=== PATIENT | female | born 1945 | race African-American/Black ===

== ENCOUNTER 2018-04-07 23:58 | Inpatient (IN) | payer MEDICARE, OTHER ==
[~2018-04-07] VITALS: Ht 170.2 cm; Wt 59.0 kg
[~2018-04-07 23:58] MED LIST: ALBU6.7H INH; IPRA4AER INH
[2018-04-08] VITALS (8 sets, daily range): BP systolic 101–124; BP diastolic 62–77
[2018-04-08] MEDS ORDERED: IPRATROPIUM BROMIDE (0.02%) 0.5MG/2.5ML NEB HHN STA (00:07)
[2018-04-08] MEDS ORDERED: ONDANSETRON HCL 4MG/2ML VIAL IV STA (00:07)
[2018-04-08] MEDS ORDERED: METHYLPREDNISOLONE SOD SUCC 125 MG/2 ML VIAL IV STA (00:07)
[2018-04-08] MEDS ORDERED: MAGNESIUM 2 G PREMIX 50 ML IV ONE ×2 (00:15→03:15)
[2018-04-08] MEDS ORDERED: ALBUTEROL (0.083%) 2.5MG/3ML NEB HHN SCH (00:30)
[2018-04-08 00:39] LABS: BG BASE EXCESS 1.3 mmol/L (-2.0-2.0); BG BILEVEL POS AIRWAY PRESSURE 15/5; BG CARBOXYHEMOGLOBIN 0.6 % (0.5-1.5); BG DEOXYHEMOGLOBIN 1.1 % (0.0-5.0); BG FRACTION INSPIRED OXYGEN 40; BG HCO3 ACT 26.3 mmol/L (22.0-26.0); BG METHEMOGLOBIN 0.4 % (0.0-1.5); BG OXYGEN SATURATION 98.9 % (92.0-98.5); BG OXYHEMOGLOBIN 97.9 % (94.0-97.0); BG PCO2 43.1 mmHg (35.0-45.0); BG PH 7.403 (7.350-7.450); BG PO2 161.2 mmHg (75.0-100.0); BG SAMPLE SITE RIGHT RADIAL; BG TOTAL HEMOGLOBIN 12.2 g/dL (12.0-18.0); BG VENT MODE MASK - BIPAP; BG VENT RATE 16 set
[2018-04-08 00:55] LABS: BASOPHILS % 0.4 % (0.0-2.0); EOSINOPHILS % 5.6 % (0.0-5.0); HEMATOCRIT. 35.6 % (36.0-48.0); HEMOGLOBIN. 11.5 g/dL (12.0-16.0); LYMPHOCYTES % 28.5 % (20.0-50.0); MEAN CORPUSCULAR HEMOGLOBIN 26.6 pg (28.0-32.0); MEAN CORPUSCULAR VOLUME 82.1 fL (81.0-99.0); MEAN PLATELET VOLUME 6.8 fl (7.4-10.4); MONOCYTES % 7.9 % (2.0-8.0); NEUTROPHILS % 57.6 % (40.0-76.0); PLATELET 279 x1000/uL (130-400); RED BLOOD CELL COUNT 4.34 mill/uL (4.2-5.4); RED CELL DISTRIBUTION WIDTH 16.6 % (11.6-14.6)
[2018-04-08] MEDS ORDERED: SODIUM CHLORIDE 0.9% 1,000 ML IV ONE (00:59)
[2018-04-08 01:00] LABS: CHLORIDE 104 mEq/L (98-107)
[2018-04-08 01:03] LABS: PROTHROMBIN TIME 10.7 sec (9.4-11.6)
[2018-04-08] MEDS ORDERED: SODIUM CHLORIDE 0.9% 1,000 ML IV SCH (02:04)
[2018-04-08] MEDS ORDERED: IPRATROPIUM/ALBUTEROL 0.5-3(2.5)MG/3ML NEB INH PRN (03:15)
[2018-04-08] MEDS ORDERED: CLONIDINE 0.1MG TABLET PO PRN (03:15)
[2018-04-08] MEDS ORDERED: DIPHENHYDRAMINE 50MG/ML VIAL IV PRN (03:15)
[2018-04-08] MEDS ORDERED: ACETAMINOPHEN 325MG TABLET PO PRN (03:15)
[2018-04-08] MEDS ORDERED: LEVOFLOXACIN 500MG PREMIX 100 ML IV SCH ×2 (03:15→08:00)
[2018-04-08] MEDS ORDERED: ONDANSETRON 4MG ODT PO PRN (03:15)
[2018-04-08] MEDS ORDERED: MAGNESIUM/ALUMINUM HYDROXIDE/SIMETHICONE 30ML UDC PO PRN (03:15)
[2018-04-08] MEDS ORDERED: LEVOFLOXACIN 500MG PREMIX 100 ML IV NR (03:30)
[2018-04-08] MEDS ORDERED: SODIUM CHLORIDE 0.9% INJ 3ML FLUSH IVF SCH (06:00)
[2018-04-08] MEDS ORDERED: METHYLPREDNISOLONE SOD SUCC 125 MG/2 ML VIAL IV SCH (06:00)
[2018-04-08] MEDS ORDERED: POTASSIUM CHLORIDE INJ 40 MEQ in DEXT 5% WATER 250 ML IV NR (09:00)
[2018-04-08] MEDS ORDERED: ENOXAPARIN 40MG/0.4ML SYR SUBCUT SCH (09:00)
[2018-04-08] MEDS: IPRATROPIUM/ALBUTEROL 0.5-3(2.5)MG/3ML NEB HHN SCH ×3 (09:13→15:55)
== END 2018-04-08 23:46 | disposition short-term general hospital (02) | DRG 189 ==
LOC: ER 04-08 00:07 → 5EST 04-08 02:05 → EDBEDREQSVC 04-08 02:09 → EDBEDREQ 04-08 02:09 → ENRESERV 04-08 02:41
PROVIDERS: ADMIT Internal Medicine; ATTEND Internal Medicine
PROC: 5A09357 Assistance with Respiratory Ventilation, Less than 24 Consecutive Hours, Continuous Positive Airway Pressure (ICD-10-PCS; principal; 2018-04-08)
DX: J96.00 Acute respiratory failure, unspecified whether with hypoxia or hypercapnia (principal); J44.1 Chronic obstructive pulmonary disease with (acute) exacerbation; E78.5 Hyperlipidemia, unspecified; E87.6 Hypokalemia; I10 Essential (primary) hypertension; Z87.891 Personal history of nicotine dependence; Z79.899 Other long term (current) drug therapy; Z88.8 Allergy status to other drugs, medicaments and biological substances
CPT/HCPCS: 36415; 36600; 71045; 80053; 82375; 82805; 83605; 83735; 83880; 84484; 85025; 85610; 87040; 93005; 96365; 96375; 99291; J1650; J1956; J2405; J2930; J3475; J3480; J7030; J7060; J7611; J7620

== ENCOUNTER 2018-10-22 04:14 | Inpatient (IN) | payer MEDICARE, OTHER ==
[~2018-10-22] VITALS: Ht 152.4 cm; Wt 60.8 kg
[2018-10-22] MEDS ORDERED: ALBUTEROL (0.083%) 2.5MG/3ML NEB HHN STA ×2 (04:19→08:22)
[2018-10-22] MEDS ORDERED: IPRATROPIUM BROMIDE (0.02%) 0.5MG/2.5ML NEB HHN STA ×2 (04:19→08:22)
[2018-10-22] MEDS ORDERED: ASPIRIN 81MG TABLET PO ONE (04:30)
[2018-10-22] MEDS ORDERED: METHYLPREDNISOLONE SOD SUCC 125 MG/2 ML VIAL IV ONE (05:45)
[2018-10-22] MEDS ORDERED: MAGNESIUM 2 G PREMIX 50 ML IV ONE (06:45)
[2018-10-22 06:55] LABS: BASOPHILS % 0.5 % (0.0-2.0); EOSINOPHILS % 1.1 % (0.0-5.0); HEMATOCRIT. 40.3 % (36.0-48.0); HEMOGLOBIN. 13.1 g/dL (12.0-16.0); LYMPHOCYTES % 13.8 % (20.0-50.0); MEAN CORPUSCULAR HEMOGLOBIN 26.3 pg (28.0-32.0); MEAN CORPUSCULAR VOLUME 80.8 fL (81.0-99.0); MEAN PLATELET VOLUME 7.2 fl (7.4-10.4); MONOCYTES % 4.1 % (2.0-8.0); NEUTROPHILS % 80.5 % (40.0-76.0); PLATELET 301 x1000/uL (130-400); RED BLOOD CELL COUNT 4.99 mill/uL (4.2-5.4); RED CELL DISTRIBUTION WIDTH 14.8 % (11.6-14.6)
[2018-10-22 07:02] LABS: PARTIAL THROMBOPLASTIN TIME 27.7 sec (23.4-31.0)
[2018-10-22 07:03] LABS: CHLORIDE 101 mEq/L (98-107)
[2018-10-22] MEDS ORDERED: LEVOFLOXACIN 500MG PREMIX 100 ML IV ONE (08:00)
[2018-10-22 08:33] LABS: BG BASE EXCESS 4.8 mmol/L (-2.0-2.0); BG BILEVEL POS AIRWAY PRESSURE 15/5; BG CARBOXYHEMOGLOBIN 0.1 % (0.5-1.5); BG DEOXYHEMOGLOBIN 2.1 % (0.0-5.0); BG HCO3 ACT 30.5 mmol/L (22.0-26.0); BG METHEMOGLOBIN 0.4 % (0.0-1.5); BG OXYGEN SATURATION 97.9 % (92.0-98.5); BG OXYHEMOGLOBIN 97.4 % (94.0-97.0); BG PCO2 49.4 mmHg (35.0-45.0); BG PH 7.409 (7.350-7.450); BG PO2 113.3 mmHg (75.0-100.0); BG SAMPLE SITE RIGHT BRACHIAL; BG TOTAL HEMOGLOBIN 13.7 g/dL (12.0-18.0); BG VENT MODE MASK - BIPAP; BG VENT RATE 14 set
[2018-10-22 09:42] LABS: CLARITY URINE CLEAR (CLEAR); COLOR URINE YELLOW (YELLOW); KETONES URINE TRACE (NEGATIVE); LEUKOCYTE ESTERASE URINE 3+ (NEGATIVE); NITRITE URINE NEGATIVE (NEGATIVE); OCCULT BLOOD URINE TRACE (NEGATIVE); PH URINE 7.5 (4.5-8.0); PROTEIN URINE 1+ (NEGATIVE); UROBILINOGEN URINE 0.2 E.U./dL (0.2-1.0)
[2018-10-22 12:00] VITALS: BP 169/107
[2018-10-22 12:30] VITALS: BP 169/100
[2018-10-22] MEDS: METHYLPREDNISOLONE SOD SUCC 125 MG/2 ML VIAL IV SCH ×2 (13:11→19:46)
[2018-10-22] MEDS ORDERED: IPRATROPIUM/ALBUTEROL 0.5-3(2.5)MG/3ML NEB HHN PRN (13:30)
[2018-10-22] MEDS ORDERED: SODIUM CHLORIDE 0.9% 1,000 ML IV ONE (13:45)
[2018-10-22] MEDS ORDERED: LIDOCAINE HCL/PF 1% 2ML VIAL ONE (14:22)
[2018-10-22] MEDS ORDERED: PNEUMOCOCCAL 23-VAL P-SAC VAC 0.5 ML IM ONE (17:00)
[2018-10-22] MEDS: IPRATROPIUM/ALBUTEROL 0.5-3(2.5)MG/3ML NEB HHN SCH ×3 (17:11→23:57)
[2018-10-22] MEDS ORDERED: METHYLPREDNISOLONE SOD SUCC 125 MG/2 ML VIAL IV SCH (18:00)
[2018-10-22] MEDS ORDERED: DIPHENHYDRAMINE 50MG/ML VIAL IV PRN (18:45)
[2018-10-22] MEDS ORDERED: ONDANSETRON HCL 4MG/2ML INJ IV PRN (18:45)
[2018-10-22] MEDS ORDERED: HYDRALAZINE 20MG/ML VIAL IV PRN (18:45)
[2018-10-22] MEDS ORDERED: MAGNESIUM/ALUMINUM HYDROXIDE/SIMETHICONE 30ML UDC PO PRN (18:45)
[2018-10-22] MEDS: LORAZEPAM 2MG/ML CPJ IV PRN (19:45)
[2018-10-22 20:00] VITALS: BP 107/77
[2018-10-22] MEDS ORDERED: ENOXAPARIN 40MG/0.4ML SYR SUBCUT SCH (20:00)
[2018-10-22] MEDS ORDERED: KCL 20MEQ/100ML PREMIX 100 ML IV SCH (20:00)
[2018-10-22] MEDS: FAMOTIDINE 20MG/2ML VIAL IV SCH (20:52)
[2018-10-22 22:00] VITALS: BP 129/94
[2018-10-22] MEDS: GUAIFENESIN 200MG/10ML SUGAR FREE UDC PO PRN (22:48)
[2018-10-23] VITALS (14 sets, daily range): BP systolic 99–147; BP diastolic 56–97
[2018-10-23] MEDS: METHYLPREDNISOLONE SOD SUCC 125 MG/2 ML VIAL IV SCH ×4 (00:34→17:39)
[2018-10-23] MEDS: IPRATROPIUM/ALBUTEROL 0.5-3(2.5)MG/3ML NEB HHN SCH ×5 (04:15→20:45)
[2018-10-23 07:14] LABS: HEMATOCRIT. 39.6 % (36.0-48.0); HEMOGLOBIN. 13.1 g/dL (12.0-16.0); MEAN CORPUSCULAR HEMOGLOBIN 26.9 pg (28.0-32.0); MEAN PLATELET VOLUME 7.8 fl (7.4-10.4); PLATELET 277 x1000/uL (130-400); RED BLOOD CELL COUNT 4.88 mill/uL (4.2-5.4); RED CELL DISTRIBUTION WIDTH 14.9 % (11.6-14.6)
[2018-10-23] MEDS: FAMOTIDINE 20MG/2ML VIAL IV SCH (08:53)
[2018-10-23] MEDS: GUAIFENESIN 200MG/10ML SUGAR FREE UDC PO PRN (08:53)
[2018-10-23] MEDS: CLOPIDOGREL 75MG TABLET PO SCH (11:04)
[2018-10-23] MEDS: ASPIRIN 81MG TABLET PO SCH (11:04)
[2018-10-23 11:05] LABS: BG BASE EXCESS 3.2 mmol/L (-2.0-2.0); BG BILEVEL POS AIRWAY PRESSURE ST=15/5; BG CARBOXYHEMOGLOBIN 0.8 % (0.5-1.5); BG DEOXYHEMOGLOBIN 1.4 % (0.0-5.0); BG FRACTION INSPIRED OXYGEN 35; BG HCO3 ACT 29.9 mmol/L (22.0-26.0); BG METHEMOGLOBIN 0.5 % (0.0-1.5); BG OXYGEN SATURATION 98.6 % (92.0-98.5); BG OXYHEMOGLOBIN 97.3 % (94.0-97.0); BG PCO2 55.3 mmHg (35.0-45.0); BG PH 7.351 (7.350-7.450); BG PO2 131.6 mmHg (75.0-100.0); BG PRESSURE SUPPORT 10; BG SAMPLE SITE LEFT BRACHIAL; BG TOTAL HEMOGLOBIN 12.8 g/dL (12.0-18.0); BG VENT MODE MASK - BIPAP; BG VENT RATE 14 set
[2018-10-23] MEDS: ENOXAPARIN 60MG/0.6ML SYR SUBCUT SCH ×2 (13:04→21:28)
[2018-10-23] MEDS: SODIUM CHLORIDE 0.9% INJ 3ML FLUSH IVF SCH ×4 (13:04→21:30)
[2018-10-23] MEDS ORDERED: GUAIFENESIN/DM 600MG/30MG ER TAB 12HR PO SCH (17:30)
[2018-10-23 18:56] LABS: PLATELET ESTIMATE NORMAL
[2018-10-23] MEDS: BENZONATATE 100MG CAPSULE PO SCH (21:28)
[2018-10-24] VITALS (15 sets, daily range): BP systolic 95–191; BP diastolic 71–109
[2018-10-24] MEDS: IPRATROPIUM/ALBUTEROL 0.5-3(2.5)MG/3ML NEB HHN SCH ×6 (00:26→20:35)
[2018-10-24] MEDS: METHYLPREDNISOLONE SOD SUCC 125 MG/2 ML VIAL IV SCH ×3 (00:28→11:04)
[2018-10-24] MEDS: LORAZEPAM 2MG/ML CPJ IV PRN ×2 (03:36→11:04)
[2018-10-24] MEDS: BENZONATATE 100MG CAPSULE PO SCH ×3 (06:37→21:39)
[2018-10-24] MEDS: SODIUM CHLORIDE 0.9% INJ 3ML FLUSH IVF SCH ×3 (06:51→22:03)
[2018-10-24] MEDS: FAMOTIDINE 20MG/2ML VIAL IV SCH (08:30)
[2018-10-24] MEDS: ASPIRIN 81MG TABLET PO SCH (08:30)
[2018-10-24] MEDS: CLONIDINE 0.1MG TABLET PO PRN (08:30)
[2018-10-24] MEDS: CLOPIDOGREL 75MG TABLET PO SCH (08:30)
[2018-10-24] MEDS: ENOXAPARIN 60MG/0.6ML SYR SUBCUT SCH (08:31)
[2018-10-24] MEDS: GUAIFENESIN 200MG/10ML SUGAR FREE UDC PO PRN (08:31)
[2018-10-24] MEDS: GUAIFENESIN 600MG ER TABLET PO SCH ×2 (09:00→21:39)
[2018-10-24 10:55] LABS: BG BASE EXCESS 4.6 mmol/L (-2.0-2.0); BG CARBOXYHEMOGLOBIN 0.2 % (0.5-1.5); BG DEOXYHEMOGLOBIN 0.9 % (0.0-5.0); BG FRACTION INSPIRED OXYGEN 32; BG METHEMOGLOBIN 0.4 % (0.0-1.5); BG OXYGEN SATURATION 99.1 % (92.0-98.5); BG OXYHEMOGLOBIN 98.5 % (94.0-97.0); BG PCO2 54.3 mmHg (35.0-45.0); BG PH 7.375 (7.350-7.450); BG PO2 203.6 mmHg (75.0-100.0); BG SAMPLE SITE RIGHT BRACHIAL; BG TOTAL HEMOGLOBIN 12.9 g/dL (12.0-18.0); BG VENT MODE NASAL CANNULA
[2018-10-24] MEDS: LOSARTAN POTASSIUM 25 MG TABLET PO SCH (11:03)
[2018-10-24] MEDS: AMLODIPINE 5MG TABLET PO SCH ×2 (11:04→21:00)
[2018-10-24] MEDS ORDERED: ENOXAPARIN 30MG/0.3ML SYR SUBCUT SCH (11:13)
[2018-10-24] MEDS: METHYLPREDNISOLONE SOD SUCC 40 MG/ML VIAL IV SCH ×2 (13:00→21:39)
[2018-10-24] MEDS ORDERED: ENOXAPARIN 40MG/0.4ML SYR SUBCUT SCH (14:00)
[2018-10-24] MEDS: BUDESONIDE 0.5MG/2ML NEB HHN SCH (20:35)
[2018-10-24] MEDS: FLUTICASONE PROPIONATE 50MCG/SPRAY BOTTLE BOTHNSTRLS SCH (21:41)
[2018-10-25] VITALS (12 sets, daily range): BP systolic 96–160; BP diastolic 32–100
[2018-10-25] MEDS: IPRATROPIUM/ALBUTEROL 0.5-3(2.5)MG/3ML NEB HHN SCH ×5 (00:19→16:37)
[2018-10-25] MEDS: LORAZEPAM 2MG/ML CPJ IV PRN ×2 (02:03→12:06)
[2018-10-25] MEDS: METHYLPREDNISOLONE SOD SUCC 40 MG/ML VIAL IV SCH ×2 (06:07→13:29)
[2018-10-25] MEDS: SODIUM CHLORIDE 0.9% INJ 3ML FLUSH IVF SCH ×2 (06:07→13:29)
[2018-10-25] MEDS: BENZONATATE 100MG CAPSULE PO SCH ×2 (06:07→13:29)
[2018-10-25] MEDS: LOSARTAN POTASSIUM 25 MG TABLET PO SCH (08:18)
[2018-10-25] MEDS: GUAIFENESIN 600MG ER TABLET PO SCH (08:18)
[2018-10-25] MEDS: ASPIRIN 81MG TABLET PO SCH (08:18)
[2018-10-25] MEDS: AMLODIPINE 5MG TABLET PO SCH (08:19)
[2018-10-25] MEDS: FAMOTIDINE 20MG/2ML VIAL IV SCH (08:19)
[2018-10-25] MEDS: FLUTICASONE PROPIONATE 50MCG/SPRAY BOTTLE BOTHNSTRLS SCH (08:19)
[2018-10-25] MEDS: CLOPIDOGREL 75MG TABLET PO SCH (08:19)
[2018-10-25] MEDS: BUDESONIDE 0.5MG/2ML NEB HHN SCH (08:30)
[2018-10-25] MEDS ORDERED: ENOXAPARIN 40MG/0.4ML SYR SUBCUT SCH (09:00)
[2018-10-25 10:15] LABS: BG BASE EXCESS 7.7 mmol/L (-2.0-2.0); BG BILEVEL POS AIRWAY PRESSURE 15/5; BG CARBOXYHEMOGLOBIN 0.3 % (0.5-1.5); BG DEOXYHEMOGLOBIN 3.2 % (0.0-5.0); BG HCO3 ACT 35.3 mmol/L (22.0-26.0); BG OXYGEN SATURATION 96.8 % (92.0-98.5); BG OXYHEMOGLOBIN 96.5 % (94.0-97.0); BG PCO2 63.7 mmHg (35.0-45.0); BG PH 7.361 (7.350-7.450); BG PO2 88.2 mmHg (75.0-100.0); BG SAMPLE SITE RIGHT RADIAL; BG TOTAL HEMOGLOBIN 13.3 g/dL (12.0-18.0); BG VENT MODE MASK - BIPAP; BG VENT RATE 14 set
[2018-10-25] MEDS ORDERED: METHYLPREDNISOLONE SOD SUCC 125 MG/2 ML VIAL IV SCH (20:00)
[2018-10-25] MEDS: CLONIDINE 0.1MG TABLET PO PRN (20:15)
== END 2018-10-25 20:29 | disposition short-term general hospital (02) | DRG 871 ==
LOC: ER 04:14 → EDBEDREQSVC 06:44 → EDBEDREQ 06:44 → 5EST 07:47 → EDBEDREQ 08:01 → ENRESERV 09:15
PROVIDERS: ADMIT Internal Medicine; ATTEND Internal Medicine
PROC: 5A09457 Assistance with Respiratory Ventilation, 24-96 Consecutive Hours, Continuous Positive Airway Pressure (ICD-10-PCS; principal; 2018-10-22)
PROC: 5A09357 Assistance with Respiratory Ventilation, Less than 24 Consecutive Hours, Continuous Positive Airway Pressure (ICD-10-PCS; 2018-10-24)
PROC: 5A09357 Assistance with Respiratory Ventilation, Less than 24 Consecutive Hours, Continuous Positive Airway Pressure (ICD-10-PCS; 2018-10-25)
DX: A41.9 Sepsis, unspecified organism (principal); I21.4 Non-ST elevation (NSTEMI) myocardial infarction; J96.20 Acute and chronic respiratory failure, unspecified whether with hypoxia or hypercapnia; J44.1 Chronic obstructive pulmonary disease with (acute) exacerbation; N39.0 Urinary tract infection, site not specified; J44.0 Chronic obstructive pulmonary disease with (acute) lower respiratory infection; J20.9 Acute bronchitis, unspecified; I16.0 Hypertensive urgency; F41.9 Anxiety disorder, unspecified; I10 Essential (primary) hypertension; Z87.891 Personal history of nicotine dependence; Z88.9 Allergy status to unspecified drugs, medicaments and biological substances; Z90.49 Acquired absence of other specified parts of digestive tract
CPT/HCPCS: 36415; 36600; 71045; 80048; 82375; 82805; 83605; 83735; 83880; 84484; 93005; 93306; 94640; 94660; 96374; 96375; 99291; J1650; J2060; J2920; J2930; J3475; J3480; J3490; J7611; J7620; J7626

== ENCOUNTER 2018-11-08 15:51 | Inpatient (IN) | payer MEDICARE, OTHER ==
[~2018-11-08] VITALS: Ht 165.1 cm; Wt 54.5 kg
[2018-11-08] MEDS ORDERED: IPRATROPIUM BROMIDE (0.02%) 0.5MG/2.5ML NEB HHN STA (16:03)
[2018-11-08] MEDS ORDERED: METHYLPREDNISOLONE SOD SUCC 125 MG/2 ML VIAL IV STA (16:03)
[2018-11-08] MEDS ORDERED: MAGNESIUM 2 G PREMIX 50 ML IV ONE (16:15)
[2018-11-08] MEDS ORDERED: ALBUTEROL (0.083%) 2.5MG/3ML NEB HHN SCH (16:30)
[2018-11-08] MEDS ORDERED: ONDANSETRON HCL 4MG/2ML INJ IV ONE (16:45)
[2018-11-08] MEDS ORDERED: MORPHINE SULFATE 4 MG/ML CPJ (NOT FOR IM USE) IV NR (16:45)
[2018-11-08] MEDS ORDERED: SODIUM CHLORIDE 0.9% 1000ML BAG (SEPSIS BOLUS) IV ONE (16:45)
[2018-11-08] MEDS ORDERED: FAMOTIDINE 20MG/2ML VIAL IV ONE (16:45)
[2018-11-08 16:51] LABS: BG BASE EXCESS 6.7 mmol/L (-2.0-2.0); BG BILEVEL POS AIRWAY PRESSURE 15/5; BG CARBOXYHEMOGLOBIN 0.3 % (0.5-1.5); BG DEOXYHEMOGLOBIN 0.7 % (0.0-5.0); BG HCO3 ACT 26.9 mmol/L (22.0-26.0); BG METHEMOGLOBIN 0.4 % (0.0-1.5); BG OXYGEN SATURATION 99.3 % (92.0-98.5); BG OXYHEMOGLOBIN 98.6 % (94.0-97.0); BG PCO2 24.6 mmHg (35.0-45.0); BG PH 7.657 (7.350-7.450); BG PO2 225.2 mmHg (75.0-100.0); BG SAMPLE SITE RIGHT RADIAL; BG TOTAL HEMOGLOBIN 10.2 g/dL (12.0-18.0); BG VENT MODE MASK - BIPAP; BG VENT RATE 12 set
[2018-11-08 16:56] LABS: BASOPHILS % 0.3 % (0.0-2.0); EOSINOPHILS % 0.2 % (0.0-5.0); HEMATOCRIT. 25.6 % (36.0-48.0); HEMOGLOBIN. 8.4 g/dL (12.0-16.0); LYMPHOCYTES % 18.9 % (20.0-50.0); MEAN CORPUSCULAR HEMOGLOBIN 27.5 pg (28.0-32.0); MEAN CORPUSCULAR VOLUME 83.2 fL (81.0-99.0); MEAN PLATELET VOLUME 7.7 fl (7.4-10.4); MONOCYTES % 3.5 % (2.0-8.0); NEUTROPHILS % 77.1 % (40.0-76.0); PLATELET 453 x1000/uL (130-400); RED BLOOD CELL COUNT 3.07 mill/uL (4.2-5.4); RED CELL DISTRIBUTION WIDTH 16.2 % (11.6-14.6)
[2018-11-08 16:58] LABS: CHLORIDE 95 mEq/L (98-107)
[2018-11-08 17:04] LABS: INR 1.1; PARTIAL THROMBOPLASTIN TIME 20.9 sec (23.4-31.0); PROTHROMBIN TIME 10.8 sec (9.1-11.1)
[2018-11-08] MEDS: SIMETHICONE 80MG TABLET CHEW PO PRN ×2 (17:44→19:23)
[2018-11-08] MEDS: PIPERACILLIN/TAZ 3.375G PREMIX 50 ML IV NR ×2 (17:44→19:24)
[2018-11-08] MEDS ORDERED: VANCOMYCIN 1 G PREMIX 200 ML IV SCH (20:30)
[2018-11-08] MEDS ORDERED: MORPHINE SULFATE 2 MG/ML CPJ (NOT FOR IM USE) IV ONE (20:45)
[2018-11-08 21:51] LABS: CLARITY URINE CLEAR (CLEAR); COLOR URINE YELLOW (YELLOW); KETONES URINE NEGATIVE (NEGATIVE); LEUKOCYTE ESTERASE URINE 2+ (NEGATIVE); NITRITE URINE NEGATIVE (NEGATIVE); OCCULT BLOOD URINE NEGATIVE (NEGATIVE); PROTEIN URINE TRACE (NEGATIVE); SPECIFIC GRAVITY URINE 1.014 (1.005-1.030); UROBILINOGEN URINE 0.2 E.U./dL (0.2-1.0)
[2018-11-08] MEDS ORDERED: PANTOPRAZOLE 80 MG in SODIUM CHLORIDE 0.9% 100 ML IV SCH ×2 (22:00→22:45)
[2018-11-08] MEDS ORDERED: PANTOPRAZOLE SODIUM 40 MG/VIAL IV ONE (22:00)
[2018-11-08] MEDS ORDERED: IOHEXOL-350 100 ML BOTTLE ONE (23:42)
[2018-11-09] VITALS (57 sets, daily range): BP systolic 77–223; BP diastolic 14–131
[2018-11-09] MEDS ORDERED: SODIUM CHLORIDE 0.9% 1,000 ML IV ONE
[2018-11-09] MEDS ORDERED: BUPIVACAINE HCL 0.5% (5MG/ML) 50ML ONE (00:49)
[2018-11-09] MEDS ORDERED: BACITRACIN 50,000 UNITS/VIAL ONE ×2 (00:49→02:28)
[2018-11-09] MEDS ORDERED: GLYCOPYRROLATE 0.2 MG/ML 2ML VIAL ONE (01:08)
[2018-11-09] MEDS ORDERED: NEOSTIGMINE METHYLSULFATE 1MG/ML 10 ML VIAL ONE (01:08)
[2018-11-09] MEDS ORDERED: PROPOFOL 200MG/20ML VIAL IV ONE (01:08)
[2018-11-09] MEDS ORDERED: FENTANYL CITRATE/PF 50MCG/ML 2ML VIAL ONE ×2 (01:08→02:35)
[2018-11-09] MEDS ORDERED: ROCURONIUM BROMIDE 10MG/ML VIAL 5ML IV ONE ×2 (01:08→02:05)
[2018-11-09] MEDS ORDERED: MIDAZOLAM HCL 2 MG/2 ML VIAL ONE (01:08)
[2018-11-09] MEDS ORDERED: SODIUM CHLORIDE 0.9% 10ML VIAL ONE (01:09)
[2018-11-09] MEDS ORDERED: LIDOCAINE HCL/PF 1% 10 MG/ML 5ML VIAL ONE (01:09)
[2018-11-09] MEDS ORDERED: CEFAZOLIN SODIUM 1000MG/VIAL ONE (01:09)
[2018-11-09] MEDS ORDERED: PHENYLEPHRINE HCL 10 MG/ML 1ML (IV VIAL) IV ONE (01:09)
[2018-11-09] MEDS ORDERED: SUCCINYLCHOLINE CHLORIDE 200MG/10ML IV ONE ×2 (01:09→01:12)
[2018-11-09] MEDS ORDERED: METOCLOPRAMIDE HCL 10MG/2ML VIAL ONE (01:09)
[2018-11-09] MEDS ORDERED: ONDANSETRON HCL 4MG/2ML INJ ONE (01:09)
[2018-11-09] MEDS ORDERED: EPHEDRINE SULFATE 50MG/ML VIAL ONE (01:09)
[2018-11-09] MEDS ORDERED: ETOMIDATE 2MG/ML 10ML VIAL IV ONE (01:16)
[2018-11-09] MEDS ORDERED: ALBUMIN HUMAN 12.5G/250ML (5%) IV ONE (01:25)
[2018-11-09] MEDS ORDERED: LEVOFLOXACIN 500MG PREMIX 100 ML IV ONE (01:26)
[2018-11-09] MEDS ORDERED: ACETAMINOPHEN 650MG SUPP PR PRN (01:30)
[2018-11-09] MEDS ORDERED: MORPHINE SULFATE 2 MG/ML CPJ (NOT FOR IM USE) IV PRN (01:30)
[2018-11-09] MEDS ORDERED: ONDANSETRON HCL 4MG/2ML INJ IV PRN (01:30)
[2018-11-09] MEDS ORDERED: LEVOFLOXACIN 500MG PREMIX 100 ML IV SCH (01:30)
[2018-11-09 04:23] LABS: BG BASE EXCESS -4.4 mmol/L (-2.0-2.0); BG CARBOXYHEMOGLOBIN 0.5 % (0.5-1.5); BG DEOXYHEMOGLOBIN 0.4 % (0.0-5.0); BG FRACTION INSPIRED OXYGEN 100; BG HCO3 ACT 21.6 mmol/L (22.0-26.0); BG METHEMOGLOBIN 0.6 % (0.0-1.5); BG OXYGEN SATURATION 99.6 % (92.0-98.5); BG OXYHEMOGLOBIN 98.5 % (94.0-97.0); BG PCO2 43.2 mmHg (35.0-45.0); BG PH 7.316 (7.350-7.450); BG PO2 518.3 mmHg (75.0-100.0); BG SAMPLE SITE A-LINE; BG TIDAL VOLUME(mL) 500 mL; BG TOTAL HEMOGLOBIN 11.6 g/dL (12.0-18.0); BG VENT MODE VENT - A/C; BG VENT RATE 12 set
[2018-11-09] MEDS ORDERED: HYDRALAZINE 20MG/ML VIAL IV PRN (04:45)
[2018-11-09] MEDS ORDERED: PROPOFOL 10MG/ML 100ML 100 ML IV PRN (04:45)
[2018-11-09] MEDS: MORPHINE SULFATE 4 MG/ML CPJ (NOT FOR IM USE) IV PRN ×4 (05:12→21:04)
[2018-11-09] MEDS: DEXT 5%/0.45% NACL KCL 20MEQ/L 1,000 ML IV SCH ×2 (05:17→14:04)
[2018-11-09 05:53] LABS: HEMOGLOBIN. 10.9 g/dL (12.0-16.0); MEAN CORPUSCULAR HEMOGLOBIN 28.1 pg (28.0-32.0); MEAN CORPUSCULAR VOLUME 84.9 fL (81.0-99.0); MEAN PLATELET VOLUME 7.6 fl (7.4-10.4); PLATELET 304 x1000/uL (130-400); RED BLOOD CELL COUNT 3.89 mill/uL (4.2-5.4); RED CELL DISTRIBUTION WIDTH 15.6 % (11.6-14.6)
[2018-11-09 05:55] LABS: CHLORIDE 103 mEq/L (98-107)
[2018-11-09] MEDS ORDERED: SODIUM CHLORIDE 0.9% 500 ML IV ONE ×2 (08:30→12:30)
[2018-11-09] MEDS ORDERED: FAMOTIDINE 20MG/2ML VIAL IV SCH (09:00)
[2018-11-09] MEDS: BUDESONIDE 0.5MG/2ML NEB HHN SCH ×2 (09:17→20:13)
[2018-11-09 10:21] LABS: PLATELET ESTIMATE NORMAL
[2018-11-09 11:40] LABS: BG BASE EXCESS -5.2 mmol/L (-2.0-2.0); BG CARBOXYHEMOGLOBIN 0.7 % (0.5-1.5); BG DEOXYHEMOGLOBIN 4.6 % (0.0-5.0); BG FRACTION INSPIRED OXYGEN 40; BG HCO3 ACT 21.2 mmol/L (22.0-26.0); BG METHEMOGLOBIN 0.3 % (0.0-1.5); BG OXYGEN SATURATION 95.4 % (92.0-98.5); BG OXYHEMOGLOBIN 94.4 % (94.0-97.0); BG PCO2 44.2 mmHg (35.0-45.0); BG PH 7.298 (7.350-7.450); BG PO2 86.2 mmHg (75.0-100.0); BG PRESSURE SUPPORT 8; BG SAMPLE SITE A-LINE; BG TOTAL HEMOGLOBIN 12.4 g/dL (12.0-18.0); BG VENT MODE VENT - CPAP
[2018-11-09] MEDS: IPRATROPIUM BROMIDE (0.02%) 0.5MG/2.5ML NEB HHN SCH ×4 (12:00→23:47)
[2018-11-09 13:31] LABS: HEPATITIS B SURFACE ANTIGEN NEGATIVE
[2018-11-09 14:00] LABS: HEPATITIS A AB IGM NEGATIVE (NEGATIVE)
[2018-11-09] MEDS ORDERED: LORAZEPAM 2MG/ML CPJ IV SCH (15:00)
[2018-11-09] MEDS ORDERED: SODIUM CHLORIDE 0.9% 500 ML IV NR (15:15)
[2018-11-10] VITALS (31 sets, daily range): BP systolic 77–143; BP diastolic 30–83
[2018-11-10] MEDS: LEVOFLOXACIN 250MG PREMIX 50 ML IV SCH (00:49)
[2018-11-10] MEDS: MORPHINE SULFATE 4 MG/ML CPJ (NOT FOR IM USE) IV PRN ×5 (01:26→21:37)
[2018-11-10] MEDS: DEXT 5%/0.45% NACL KCL 20MEQ/L 1,000 ML IV SCH (01:34)
[2018-11-10] MEDS: IPRATROPIUM BROMIDE (0.02%) 0.5MG/2.5ML NEB HHN SCH ×6 (04:27→23:49)
[2018-11-10 06:59] LABS: HEMATOCRIT. 31.6 % (36.0-48.0); HEMOGLOBIN. 10.6 g/dL (12.0-16.0); MEAN CORPUSCULAR HEMOGLOBIN 28.3 pg (28.0-32.0); MEAN CORPUSCULAR VOLUME 84.5 fL (81.0-99.0); MEAN PLATELET VOLUME 7.4 fl (7.4-10.4); PLATELET 309 x1000/uL (130-400); RED BLOOD CELL COUNT 3.73 mill/uL (4.2-5.4)
[2018-11-10 07:00] LABS: CHLORIDE 108 mEq/L (98-107)
[2018-11-10] MEDS: DEXT 5%/0.45% NACL 1000ML 1,000 ML IV SCH ×2 (07:41→18:52)
[2018-11-10] MEDS: BUDESONIDE 0.5MG/2ML NEB HHN SCH ×2 (07:41→20:16)
[2018-11-10] MEDS: PANTOPRAZOLE SODIUM 40 MG/VIAL IV SCH (08:53)
[2018-11-10 09:34] LABS: PLATELET ESTIMATE NORMAL
[2018-11-10 10:32] LABS: BG BASE EXCESS -1.5 mmol/L (-2.0-2.0); BG CARBOXYHEMOGLOBIN 0.6 % (0.5-1.5); BG DEOXYHEMOGLOBIN 2.8 % (0.0-5.0); BG FRACTION INSPIRED OXYGEN 36; BG HCO3 ACT 23.6 mmol/L (22.0-26.0); BG METHEMOGLOBIN 0.4 % (0.0-1.5); BG OXYGEN SATURATION 97.2 % (92.0-98.5); BG OXYHEMOGLOBIN 96.2 % (94.0-97.0); BG PCO2 41.1 mmHg (35.0-45.0); BG PH 7.377 (7.350-7.450); BG PO2 95.8 mmHg (75.0-100.0); BG SAMPLE SITE RIGHT RADIAL; BG TOTAL HEMOGLOBIN 10.6 g/dL (12.0-18.0); BG VENT MODE NASAL CANNULA
[2018-11-10] MEDS: METRONIDAZOLE 500 MG PREMIX 100 ML IV SCH ×2 (13:01→21:37)
[2018-11-11] VITALS (59 sets, daily range): BP systolic 101–181; BP diastolic 47–106
[2018-11-11] MEDS: LEVOFLOXACIN 250MG PREMIX 50 ML IV SCH (00:42)
[2018-11-11] MEDS: IPRATROPIUM BROMIDE (0.02%) 0.5MG/2.5ML NEB HHN SCH ×5 (04:15→20:17)
[2018-11-11 05:56] LABS: HEMATOCRIT. 27.9 % (36.0-48.0); HEMOGLOBIN. 9.3 g/dL (12.0-16.0); MEAN CORPUSCULAR HEMOGLOBIN 28.4 pg (28.0-32.0); MEAN CORPUSCULAR VOLUME 84.9 fL (81.0-99.0); MEAN PLATELET VOLUME 7.3 fl (7.4-10.4); PLATELET 285 x1000/uL (130-400); RED BLOOD CELL COUNT 3.28 mill/uL (4.2-5.4); RED CELL DISTRIBUTION WIDTH 16.3 % (11.6-14.6)
[2018-11-11] MEDS: MORPHINE SULFATE 4 MG/ML CPJ (NOT FOR IM USE) IV PRN ×3 (06:04→21:23)
[2018-11-11 06:05] LABS: CHLORIDE 107 mEq/L (98-107)
[2018-11-11] MEDS: METRONIDAZOLE 500 MG PREMIX 100 ML IV SCH ×3 (06:59→21:34)
[2018-11-11 07:00] LABS: PLATELET ESTIMATE NORMAL
[2018-11-11] MEDS: DEXT 5%/0.45% NACL 1000ML 1,000 ML IV SCH ×3 (07:34→23:16)
[2018-11-11] MEDS: BUDESONIDE 0.5MG/2ML NEB HHN SCH ×2 (08:18→20:16)
[2018-11-11] MEDS: PANTOPRAZOLE SODIUM 40 MG/VIAL IV SCH (08:54)
[2018-11-11] MEDS: DILTIAZEM HCL 125 MG in DEXT 5% WATER 100 ML IV SCH (10:09)
[2018-11-11] MEDS ORDERED: FLUCONAZOLE 800 MG/400 ML IV ONE (11:15)
[2018-11-11] MEDS: ENOXAPARIN 40MG/0.4ML SYR SUBCUT SCH (11:28)
[2018-11-11] MEDS: CLOPIDOGREL 75MG TABLET PO SCH (11:28)
[2018-11-11] MEDS: FLUCONAZOLE 400MG/200ML BAG 200 ML IV SCH ×2 (13:36→15:53)
[2018-11-11 16:00] LABS: LDL CHOLESTEROL 38 mg/dL (5-100)
[2018-11-11 16:01] LABS: HDL CHOLESTEROL 50 mg/dL (40-59)
[2018-11-11 16:02] LABS: T4 FREE 1.61 ng/dL (0.76-1.46)
[2018-11-11 16:16] LABS: FOLIC ACID (FOLATE) SERUM 8.9 ng/mL (>5.38)
[2018-11-12] VITALS (94 sets, daily range): BP systolic 117–154; BP diastolic 61–96
[2018-11-12] MEDS: IPRATROPIUM BROMIDE (0.02%) 0.5MG/2.5ML NEB HHN SCH ×6 (00:23→20:11)
[2018-11-12] MEDS: LEVOFLOXACIN 250MG PREMIX 50 ML IV SCH (00:42)
[2018-11-12] MEDS: MORPHINE SULFATE 4 MG/ML CPJ (NOT FOR IM USE) IV PRN ×3 (02:55→20:14)
[2018-11-12 05:31] LABS: HEMATOCRIT. 26.7 % (36.0-48.0); HEMOGLOBIN. 9.1 g/dL (12.0-16.0); MEAN CORPUSCULAR HEMOGLOBIN 28.6 pg (28.0-32.0); MEAN CORPUSCULAR VOLUME 83.8 fL (81.0-99.0); MEAN PLATELET VOLUME 7.2 fl (7.4-10.4); PLATELET 280 x1000/uL (130-400); RED BLOOD CELL COUNT 3.19 mill/uL (4.2-5.4); RED CELL DISTRIBUTION WIDTH 16.1 % (11.6-14.6)
[2018-11-12] MEDS: MICAFUNGIN 100 MG in SODIUM CHLORIDE 0.9% 100 ML IV SCH (05:34)
[2018-11-12 05:39] LABS: CHLORIDE 106 mEq/L (98-107)
[2018-11-12] MEDS: METRONIDAZOLE 500 MG PREMIX 100 ML IV SCH ×3 (06:42→21:23)
[2018-11-12] MEDS: BUDESONIDE 0.5MG/2ML NEB HHN SCH (08:37)
[2018-11-12] MEDS: PANTOPRAZOLE SODIUM 40 MG/VIAL IV SCH (10:54)
[2018-11-12] MEDS: ENOXAPARIN 40MG/0.4ML SYR SUBCUT SCH (10:54)
[2018-11-12] MEDS: CLOPIDOGREL 75MG TABLET PO SCH (10:54)
[2018-11-12] MEDS: DILTIAZEM HCL 125 MG in DEXT 5% WATER 100 ML IV SCH ×2 (10:57→20:20)
[2018-11-12] MEDS: DEXT 5%/0.45% NACL 1000ML 1,000 ML IV SCH ×2 (10:58→20:28)
[2018-11-12] MEDS ORDERED: FLUCONAZOLE 400MG/200ML BAG 200 ML IV SCH (12:00)
[2018-11-12 15:00] LABS: PLATELET ESTIMATE NORMAL
[2018-11-13] VITALS (91 sets, daily range): BP systolic 123–163; BP diastolic 61–86
[2018-11-13] MEDS: IPRATROPIUM BROMIDE (0.02%) 0.5MG/2.5ML NEB HHN SCH ×6 (00:17→20:29)
[2018-11-13] MEDS: LEVOFLOXACIN 250MG PREMIX 50 ML IV SCH (00:29)
[2018-11-13] MEDS: MICAFUNGIN 100 MG in SODIUM CHLORIDE 0.9% 100 ML IV SCH (03:49)
[2018-11-13] MEDS: DEXT 5%/0.45% NACL 1000ML 1,000 ML IV SCH ×2 (05:05→16:31)
[2018-11-13] MEDS: MORPHINE SULFATE 4 MG/ML CPJ (NOT FOR IM USE) IV PRN ×4 (05:06→22:08)
[2018-11-13 05:35] LABS: BASOPHILS % 0.2 % (0.0-2.0); EOSINOPHILS % 0.6 % (0.0-5.0); HEMATOCRIT. 28.4 % (36.0-48.0); HEMOGLOBIN. 9.6 g/dL (12.0-16.0); LYMPHOCYTES % 9.3 % (20.0-50.0); MEAN CORPUSCULAR HEMOGLOBIN 28.5 pg (28.0-32.0); MEAN CORPUSCULAR VOLUME 84.1 fL (81.0-99.0); MEAN PLATELET VOLUME 7.3 fl (7.4-10.4); MONOCYTES % 4.2 % (2.0-8.0); NEUTROPHILS % 85.7 % (40.0-76.0); PLATELET 305 x1000/uL (130-400); RED BLOOD CELL COUNT 3.38 mill/uL (4.2-5.4); RED CELL DISTRIBUTION WIDTH 16.2 % (11.6-14.6)
[2018-11-13 05:38] LABS: CHLORIDE 102 mEq/L (98-107)
[2018-11-13] MEDS: METRONIDAZOLE 500 MG PREMIX 100 ML IV SCH ×3 (05:54→21:34)
[2018-11-13] MEDS: CLOPIDOGREL 75MG TABLET PO SCH (09:09)
[2018-11-13] MEDS: ENOXAPARIN 40MG/0.4ML SYR SUBCUT SCH (09:09)
[2018-11-13] MEDS: PANTOPRAZOLE SODIUM 40 MG/VIAL IV SCH (09:09)
[2018-11-13] MEDS: METOPROLOL TARTRATE 50MG TABLET PO SCH ×2 (14:12→20:39)
[2018-11-13] MEDS: DILTIAZEM HCL 125 MG in DEXT 5% WATER 100 ML IV SCH (20:40)
[2018-11-14] VITALS (52 sets, daily range): BP systolic 101–178; BP diastolic 61–86
[2018-11-14] MEDS: IPRATROPIUM BROMIDE (0.02%) 0.5MG/2.5ML NEB HHN SCH ×6 (00:29→20:25)
[2018-11-14] MEDS: LEVOFLOXACIN 250MG PREMIX 50 ML IV SCH (00:44)
[2018-11-14] MEDS: MICAFUNGIN 100 MG in SODIUM CHLORIDE 0.9% 100 ML IV SCH (04:27)
[2018-11-14 05:26] LABS: BASOPHILS % 0.1 % (0.0-2.0); EOSINOPHILS % 0.8 % (0.0-5.0); HEMATOCRIT. 28.4 % (36.0-48.0); HEMOGLOBIN. 9.6 g/dL (12.0-16.0); LYMPHOCYTES % 7.6 % (20.0-50.0); MEAN CORPUSCULAR HEMOGLOBIN 28.5 pg (28.0-32.0); MEAN CORPUSCULAR VOLUME 84.2 fL (81.0-99.0); MEAN PLATELET VOLUME 7.4 fl (7.4-10.4); MONOCYTES % 5.1 % (2.0-8.0); NEUTROPHILS % 86.4 % (40.0-76.0); PLATELET 330 x1000/uL (130-400); RED BLOOD CELL COUNT 3.38 mill/uL (4.2-5.4); RED CELL DISTRIBUTION WIDTH 16.5 % (11.6-14.6)
[2018-11-14 05:27] LABS: CHLORIDE 103 mEq/L (98-107)
[2018-11-14] MEDS: METRONIDAZOLE 500 MG PREMIX 100 ML IV SCH ×3 (06:16→21:45)
[2018-11-14] MEDS: MORPHINE SULFATE 4 MG/ML CPJ (NOT FOR IM USE) IV PRN ×4 (07:30→21:45)
[2018-11-14] MEDS ORDERED: POTASSIUM CHLORIDE 20MEQ TABLET SR PO NR (09:00)
[2018-11-14] MEDS: PANTOPRAZOLE SODIUM 40 MG/VIAL IV SCH (10:26)
[2018-11-14] MEDS: CLOPIDOGREL 75MG TABLET PO SCH (10:27)
[2018-11-14] MEDS: ENOXAPARIN 40MG/0.4ML SYR SUBCUT SCH (10:27)
[2018-11-14] MEDS: METOPROLOL TARTRATE 50MG TABLET PO SCH ×2 (10:27→21:41)
[2018-11-14] MEDS: DEXT 5%/0.45% NACL 1000ML 1,000 ML IV SCH (12:32)
[2018-11-14] MEDS: DILTIAZEM HCL 125 MG in DEXT 5% WATER 100 ML IV SCH (22:51)
[2018-11-15] VITALS (11 sets, daily range): BP systolic 104–146; BP diastolic 55–87
[2018-11-15] MEDS: IPRATROPIUM BROMIDE (0.02%) 0.5MG/2.5ML NEB HHN SCH ×4 (00:11→15:21)
[2018-11-15] MEDS: MORPHINE SULFATE 4 MG/ML CPJ (NOT FOR IM USE) IV PRN ×4 (00:52→14:13)
[2018-11-15] MEDS: LEVOFLOXACIN 250MG PREMIX 50 ML IV SCH (00:52)
[2018-11-15] MEDS: IPRATROPIUM/ALBUTEROL 0.5-3(2.5)MG/3ML NEB HHN PRN ×2 (03:48→17:56)
[2018-11-15] MEDS: MICAFUNGIN 100 MG in SODIUM CHLORIDE 0.9% 100 ML IV SCH (05:15)
[2018-11-15] MEDS: METRONIDAZOLE 500 MG PREMIX 100 ML IV SCH ×2 (07:07→13:19)
[2018-11-15] MEDS: CLOPIDOGREL 75MG TABLET PO SCH (08:46)
[2018-11-15] MEDS: PANTOPRAZOLE SODIUM 40 MG/VIAL IV SCH (08:46)
[2018-11-15] MEDS: METOPROLOL TARTRATE 50MG TABLET PO SCH (08:47)
[2018-11-15] MEDS: ENOXAPARIN 40MG/0.4ML SYR SUBCUT SCH (08:48)
[2018-11-15] MEDS: DILTIAZEM HCL 125 MG in DEXT 5% WATER 100 ML IV SCH (08:54)
[2018-11-15] MEDS ORDERED: DILTIAZEM HCL 60MG TABLET PO SCH (09:00)
[2018-11-15 09:03] LABS: BASOPHILS % 0.5 % (0.0-2.0); EOSINOPHILS % 0.8 % (0.0-5.0); HEMATOCRIT. 29.6 % (36.0-48.0); HEMOGLOBIN. 9.9 g/dL (12.0-16.0); LYMPHOCYTES % 7.1 % (20.0-50.0); MEAN CORPUSCULAR HEMOGLOBIN 28.1 pg (28.0-32.0); MEAN CORPUSCULAR VOLUME 83.9 fL (81.0-99.0); MEAN PLATELET VOLUME 7.7 fl (7.4-10.4); MONOCYTES % 5.3 % (2.0-8.0); NEUTROPHILS % 86.3 % (40.0-76.0); PLATELET 396 x1000/uL (130-400); RED BLOOD CELL COUNT 3.53 mill/uL (4.2-5.4)
[2018-11-15 09:11] LABS: CHLORIDE 108 mEq/L (98-107)
[2018-11-15] MEDS ORDERED: POTASSIUM CHLORIDE 20MEQ TABLET SR PO NR (11:00)
== END 2018-11-15 19:15 | disposition short-term general hospital (02) | DRG 853 ==
LOC: ER 15:51 → 6WST 23:24 → EDBEDREQ 23:26 → EDBEDREQSVC 23:26 → EDBEDREQTM 23:26 → ER 11-09 00:36 → MICUNO 11-09 03:56 → MICUSO 11-12 00:46 → 3WST 11-14 11:41
PROVIDERS: ADMIT Internal Medicine; ATTEND Internal Medicine
PROC: 5A09357 Assistance with Respiratory Ventilation, Less than 24 Consecutive Hours, Continuous Positive Airway Pressure (ICD-10-PCS; 2018-11-08)
PROC: 0DU907Z Supplement Duodenum with Autologous Tissue Substitute, Open Approach (ICD-10-PCS; principal; 2018-11-09)
PROC: 0DH60UZ Insertion of Feeding Device into Stomach, Open Approach (ICD-10-PCS; 2018-11-09)
PROC: 30233N1 Transfusion of Nonautologous Red Blood Cells into Peripheral Vein, Percutaneous Approach (ICD-10-PCS; 2018-11-09)
PROC: 0DHA0UZ Insertion of Feeding Device into Jejunum, Open Approach (ICD-10-PCS; 2018-11-09)
DX: A41.9 Sepsis, unspecified organism (principal); K26.6 Chronic or unspecified duodenal ulcer with both hemorrhage and perforation; J96.00 Acute respiratory failure, unspecified whether with hypoxia or hypercapnia; G92 Toxic encephalopathy; I63.9 Cerebral infarction, unspecified; K65.9 Peritonitis, unspecified; K26.5 Chronic or unspecified duodenal ulcer with perforation; J90 Pleural effusion, not elsewhere classified; E44.1 Mild protein-calorie malnutrition; E87.1 Hypo-osmolality and hyponatremia; R18.8 Other ascites; B19.10 Unspecified viral hepatitis B without hepatic coma; N39.0 Urinary tract infection, site not specified; I10 Essential (primary) hypertension; D64.9 Anemia, unspecified; R65.20 Severe sepsis without septic shock; E87.8 Other disorders of electrolyte and fluid balance, not elsewhere classified; K74.60 Unspecified cirrhosis of liver; F41.9 Anxiety disorder, unspecified; E05.90 Thyrotoxicosis, unspecified without thyrotoxic crisis or storm; E78.5 Hyperlipidemia, unspecified; Z88.8 Allergy status to other drugs, medicaments and biological substances; Z79.899 Other long term (current) drug therapy; Z68.20 Body mass index [BMI] 20.0-20.9, adult
CPT/HCPCS: 36415; 36430; 36600; 70544; 70551; 71045; 71275; 74174; 76604; 76700; 80048; 80061; 82140; 82375; 82607; 82746; 82805; 82962; 83036; 83605; 83880; 84145; 84439; 84443; 84480; 84481; 84484; 86705; 86709; 86803; 86850; 86900; 86920; 87070; 87075; 87106; 87340; 87804; 93005; 93306; 93880; 93970; 94002; 94003; 94640; 94660; 96365; 96375; 97162; 97167; 97530; 99291; 99292; C1758; C9113; J0330; J0360; J0690; J1450; J1650; J1956; J2060; J2248; J2250; J2270; J2370; J2405; J2543; J2704; J2710; J2765; J2930; J3010; J3370; J3475; J3490; J7030; J7040; J7050; J7060; J7611; J7620; J7626; P9016; P9041; Q9967

== ENCOUNTER 2020-04-02 23:46 | Inpatient (IN) | payer MEDICARE, OTHER ==
[~2020-04-02] VITALS: Ht 165.1 cm; Wt 66.2 kg
[2020-04-03] MEDS ORDERED: METHYLPREDNISOLONE SOD SUCC 125 MG/2 ML VIAL IV STA (00:42)
[2020-04-03] MEDS ORDERED: IPRATROPIUM BROMIDE (0.02%) 0.5MG/2.5ML NEB HHN STA (00:42)
[2020-04-03] MEDS ORDERED: MAGNESIUM 2 G PREMIX 50 ML IV ONE (00:45)
[2020-04-03 01:00] LABS: BASOPHILS % 0.8 % (0.0-2.0); EOSINOPHILS % 5.2 % (0.0-5.0); HEMATOCRIT. 37.3 % (36.0-48.0); HEMOGLOBIN. 12.2 g/dL (12.0-16.0); LYMPHOCYTES % 31.3 % (20.0-50.0); MEAN CORPUSCULAR VOLUME 82.7 fL (81.0-99.0); MEAN PLATELET VOLUME 8.1 fl (7.4-10.4); MONOCYTES % 9.1 % (2.0-8.0); NEUTROPHILS % 53.6 % (40.0-76.0); PLATELET 261 x1000/uL (130-400); RED BLOOD CELL COUNT 4.51 mill/uL (4.2-5.4); RED CELL DISTRIBUTION WIDTH 15.2 % (11.6-14.6)
[2020-04-03] MEDS ORDERED: ALBUTEROL (0.083%) 2.5MG/3ML NEB HHN SCH (01:00)
[2020-04-03 01:01] LABS: CHLORIDE 105 mEq/L (98-107)
[2020-04-03 01:02] LABS: BG BASE EXCESS -0.1 mmol/L (-2.0-2.0); BG CARBOXYHEMOGLOBIN 0.3 % (0.5-1.5); BG DEOXYHEMOGLOBIN 0.6 % (0.0-5.0); BG FRACTION INSPIRED OXYGEN 60; BG METHEMOGLOBIN 0.4 % (0.0-1.5); BG OXYGEN SATURATION 99.4 % (92.0-98.5); BG OXYHEMOGLOBIN 98.7 % (94.0-97.0); BG PCO2 62.3 mmHg (35.0-45.0); BG PO2 312.7 mmHg (75.0-100.0); BG SAMPLE SITE RIGHT BRACHIAL; BG TOTAL HEMOGLOBIN 12.5 g/dL (12.0-18.0); BG VENT MODE MASK - AEROSOL
[2020-04-03] MEDS ORDERED: DOCUSATE SODIUM 100MG CAPSULE PO PRN (04:45)
[2020-04-03] MEDS ORDERED: CLONIDINE 0.1MG TABLET PO PRN (04:45)
[2020-04-03] MEDS ORDERED: CEFTRIAXONE 1 G PREMIX 50 ML IV SCH (04:45)
[2020-04-03] MEDS ORDERED: MAGNESIUM/ALUMINUM HYDROXIDE/SIMETHICONE 30ML UDC PO PRN (04:45)
[2020-04-03] MEDS ORDERED: ONDANSETRON HCL 4MG/2ML INJ IV PRN (04:45)
[2020-04-03] MEDS ORDERED: AZITHROMYCIN 500 MG in DEXT 5% WATER 250 ML IV SCH (06:00)
[2020-04-03] MEDS ORDERED: CEFTRIAXONE 1,000 MG in DEXTROSE 5% WATER 50 ML IV SCH (08:00)
[2020-04-03] MEDS: METHYLPREDNISOLONE SOD SUCC 125 MG/2 ML VIAL IV SCH ×3 (08:31→21:25)
[2020-04-03] MEDS: AMLODIPINE 10MG TABLET PO SCH (09:10)
[2020-04-03] MEDS: ENOXAPARIN 40MG/0.4ML SYR SUBCUT SCH (09:11)
[2020-04-03 22:00] VITALS: BP 119/75
[2020-04-04] MEDS: METHYLPREDNISOLONE SOD SUCC 125 MG/2 ML VIAL IV SCH ×2 (01:54→08:17)
[2020-04-04 04:00] VITALS: BP 120/82
[2020-04-04 06:19] LABS: HEMATOCRIT. 36.4 % (36.0-48.0); MEAN PLATELET VOLUME 7.8 fl (7.4-10.4); PLATELET 291 x1000/uL (130-400); RED BLOOD CELL COUNT 4.44 mill/uL (4.2-5.4); RED CELL DISTRIBUTION WIDTH 15.1 % (11.6-14.6)
[2020-04-04 06:31] LABS: CHLORIDE 106 mEq/L (98-107)
[2020-04-04 06:45] LABS: HDL CHOLESTEROL 99 mg/dL (40-59)
[2020-04-04 06:46] LABS: LDL CHOLESTEROL 65 mg/dL (5-100)
[2020-04-04 08:00] VITALS: BP 123/80
[2020-04-04] MEDS: ENOXAPARIN 40MG/0.4ML SYR SUBCUT SCH (08:18)
[2020-04-04] MEDS: AMLODIPINE 10MG TABLET PO SCH (08:18)
[2020-04-04] MEDS: AZITHROMYCIN 500 MG in DEXT 5% WATER 250 ML IV SCH (08:19)
[2020-04-04] MEDS ORDERED: LIDOCAINE HCL/PF 1% 2ML VIAL ONE (09:44)
[2020-04-04] MEDS: CEFTRIAXONE 1,000 MG in DEXTROSE 5% WATER 50 ML IV SCH (10:51)
[2020-04-04 12:00] VITALS: BP 116/75
[2020-04-04 12:29] LABS: BG BASE EXCESS 3.4 mmol/L (-2.0-2.0); BG CARBOXYHEMOGLOBIN 0.3 % (0.5-1.5); BG DEOXYHEMOGLOBIN 0.8 % (0.0-5.0); BG FRACTION INSPIRED OXYGEN 60; BG HCO3 ACT 30.9 mmol/L (22.0-26.0); BG METHEMOGLOBIN 0.3 % (0.0-1.5); BG OXYGEN SATURATION 99.2 % (92.0-98.5); BG OXYHEMOGLOBIN 98.6 % (94.0-97.0); BG PH 7.323 (7.350-7.450); BG PO2 245.9 mmHg (75.0-100.0); BG SAMPLE SITE LEFT RADIAL; BG TOTAL HEMOGLOBIN 12.6 g/dL (12.0-18.0); BG VENT MODE MASK - SIMPLE
[2020-04-04] MEDS: METHYLPREDNISOLONE SOD SUCC 40 MG/ML VIAL IV SCH ×2 (13:58→23:04)
[2020-04-04 14:33] LABS: PLATELET ESTIMATE NORMAL
[2020-04-04 16:00] VITALS: BP 119/78
[2020-04-04] MEDS: KETOROLAC 15MG/ML VIAL IV PRN (16:40)
[2020-04-04 20:00] VITALS: BP 100/67
[2020-04-04] MEDS: IPRATROPIUM/ALBUTEROL 0.5-3(2.5)MG/3ML NEB HHN PRN (20:55)
[2020-04-05] VITALS: BP 109/67
[2020-04-05] MEDS: IPRATROPIUM/ALBUTEROL 0.5-3(2.5)MG/3ML NEB HHN PRN ×5 (00:50→16:11)
[2020-04-05 04:00] VITALS: BP 116/88
[2020-04-05] MEDS: METHYLPREDNISOLONE SOD SUCC 40 MG/ML VIAL IV SCH ×3 (06:07→21:09)
[2020-04-05 08:00] VITALS: BP 107/60
[2020-04-05] MEDS: AMLODIPINE 10MG TABLET PO SCH (08:39)
[2020-04-05] MEDS: KETOROLAC 15MG/ML VIAL IV PRN ×3 (08:40→21:11)
[2020-04-05] MEDS: AZITHROMYCIN 500 MG in DEXT 5% WATER 250 ML IV SCH ×2 (08:40→13:37)
[2020-04-05] MEDS: ENOXAPARIN 40MG/0.4ML SYR SUBCUT SCH (08:40)
[2020-04-05] MEDS ORDERED: HYDROCODONE/ACETAMINOPHEN 5/325MG TABLET PO PRN (10:00)
[2020-04-05] MEDS ORDERED: TRAMADOL 50MG TABLET PO PRN (11:30)
[2020-04-05 12:00] VITALS: BP 107/74
[2020-04-05] MEDS ORDERED: SODIUM BICARBONATE 4% (2.4MEQ) 5ML VIAL IV ONE (13:05)
[2020-04-05] MEDS ORDERED: LIDOCAINE HCL 1% 20ML VIAL (Pyxis) INJ ONE (13:05)
[2020-04-05] MEDS: GUAIFENESIN 200MG/10ML SUGAR FREE UDC PO PRN (14:23)
[2020-04-05] MEDS: CEFTRIAXONE 1,000 MG in DEXTROSE 5% WATER 50 ML IV SCH (15:10)
[2020-04-05 15:58] VITALS: BP 95/63
[2020-04-05] MEDS: LORATADINE 10MG TABLET PO SCH (18:12)
[2020-04-05] MEDS: MONTELUKAST SODIUM 10MG TABLET PO SCH (18:12)
[2020-04-05 20:00] VITALS: BP 103/73
[2020-04-05] MEDS: IPRATROPIUM/ALBUTEROL 0.5-3(2.5)MG/3ML NEB HHN SCH (20:00)
[2020-04-05] MEDS: FAMOTIDINE 20MG TABLET PO SCH (21:09)
[2020-04-05] MEDS: FLUTICASONE PROPIONATE 50MCG/SPRAY BOTTLE BOTHNSTRLS SCH (21:09)
[2020-04-06] VITALS (7 sets, daily range): BP systolic 88–115; BP diastolic 48–75
[2020-04-06] MEDS: METHYLPREDNISOLONE SOD SUCC 40 MG/ML VIAL IV SCH ×3 (05:19→21:23)
[2020-04-06] MEDS: KETOROLAC 15MG/ML VIAL IV PRN ×2 (05:25→10:06)
[2020-04-06] MEDS: IPRATROPIUM/ALBUTEROL 0.5-3(2.5)MG/3ML NEB HHN SCH ×4 (08:49→20:01)
[2020-04-06] MEDS: AMLODIPINE 10MG TABLET PO SCH (09:00)
[2020-04-06] MEDS: FLUTICASONE PROPIONATE 50MCG/SPRAY BOTTLE BOTHNSTRLS SCH ×2 (09:00→21:00)
[2020-04-06] MEDS: CEFTRIAXONE 1,000 MG in DEXTROSE 5% WATER 50 ML IV SCH (10:00)
[2020-04-06] MEDS: LORATADINE 10MG TABLET PO SCH (10:00)
[2020-04-06] MEDS: AZITHROMYCIN 500 MG in DEXT 5% WATER 250 ML IV SCH (10:00)
[2020-04-06] MEDS: ENOXAPARIN 40MG/0.4ML SYR SUBCUT SCH (10:01)
[2020-04-06] MEDS: GUAIFENESIN 200MG/10ML SUGAR FREE UDC PO PRN (10:06)
[2020-04-06] MEDS: GUAIFENESIN 600MG ER TABLET PO SCH ×2 (10:06→21:22)
[2020-04-06] MEDS: MONTELUKAST SODIUM 10MG TABLET PO SCH (17:02)
[2020-04-06] MEDS: FAMOTIDINE 20MG TABLET PO SCH (21:23)
[2020-04-07] VITALS: BP 99/66
[2020-04-07] MEDS: IPRATROPIUM/ALBUTEROL 0.5-3(2.5)MG/3ML NEB HHN SCH ×5 (00:22→15:13)
[2020-04-07 04:00] VITALS: BP 131/80
[2020-04-07] MEDS: METHYLPREDNISOLONE SOD SUCC 40 MG/ML VIAL IV SCH ×2 (06:01→13:06)
[2020-04-07 08:00] VITALS: BP 112/93
[2020-04-07] MEDS: ENOXAPARIN 40MG/0.4ML SYR SUBCUT SCH (09:22)
[2020-04-07] MEDS: GUAIFENESIN 600MG ER TABLET PO SCH (09:22)
[2020-04-07] MEDS: AMLODIPINE 10MG TABLET PO SCH (09:22)
[2020-04-07] MEDS: CEFTRIAXONE 1,000 MG in DEXTROSE 5% WATER 50 ML IV SCH (09:22)
[2020-04-07] MEDS: AZITHROMYCIN 500 MG in DEXT 5% WATER 250 ML IV SCH (09:22)
[2020-04-07] MEDS: FLUTICASONE PROPIONATE 50MCG/SPRAY BOTTLE BOTHNSTRLS SCH (09:22)
[2020-04-07] MEDS: LORATADINE 10MG TABLET PO SCH (09:22)
[2020-04-07] MEDS: KETOROLAC 15MG/ML VIAL IV PRN (11:36)
[2020-04-07 12:00] VITALS: BP 106/74
[2020-04-07 12:02] LABS: HEMATOCRIT. 35.3 % (36.0-48.0); HEMOGLOBIN. 11.4 g/dL (12.0-16.0); MEAN CORPUSCULAR HEMOGLOBIN 26.5 pg (28.0-32.0); MEAN PLATELET VOLUME 7.5 fl (7.4-10.4); PLATELET 313 x1000/uL (130-400); RED BLOOD CELL COUNT 4.31 mill/uL (4.2-5.4); RED CELL DISTRIBUTION WIDTH 15.1 % (11.6-14.6)
[2020-04-07 12:13] LABS: CHLORIDE 101 mEq/L (98-107)
[2020-04-07] MEDS ORDERED: PRED10TA MT (12:39)
[2020-04-07] MEDS ORDERED: P20 MT (12:39)
[2020-04-07] MEDS ORDERED: P50 PO (12:39)
[2020-04-07 13:07] LABS: PLATELET ESTIMATE NORMAL
== END 2020-04-07 15:10 | disposition home or self-care (01) | DRG 189 ==
LOC: ER 23:46 → EDBEDREQTM 04-03 02:52 → EDBEDREQ 04-03 02:52 → ENRESERV 04-03 20:58 → 7WST 04-03 22:04 → 5WST 04-04 10:05
PROVIDERS: ADMIT Hospitalist; ATTEND Hospitalist
PROC: 02HV33Z Insertion of Infusion Device into Superior Vena Cava, Percutaneous Approach (ICD-10-PCS; principal; 2020-04-05)
PROC: B5181ZA Fluoroscopy of Superior Vena Cava using Low Osmolar Contrast, Guidance (ICD-10-PCS; 2020-04-05)
PROC: B548ZZA Ultrasonography of Superior Vena Cava, Guidance (ICD-10-PCS; 2020-04-05)
DX: J96.01 Acute respiratory failure with hypoxia (principal); J44.1 Chronic obstructive pulmonary disease with (acute) exacerbation; J96.02 Acute respiratory failure with hypercapnia; I10 Essential (primary) hypertension; D72.1 Eosinophilia; E05.90 Thyrotoxicosis, unspecified without thyrotoxic crisis or storm; F41.9 Anxiety disorder, unspecified; J45.909 Unspecified asthma, uncomplicated; Z20.828 Contact with and (suspected) exposure to other viral communicable diseases; J31.0 Chronic rhinitis; Z86.73 Personal history of transient ischemic attack (TIA), and cerebral infarction without residual deficits; Z99.81 Dependence on supplemental oxygen; Z88.8 Allergy status to other drugs, medicaments and biological substances; Z79.899 Other long term (current) drug therapy
CPT/HCPCS: 36415; 36573; 36600; 71045; 76937; 80053; 80061; 82375; 82805; 83880; 84484; 85025; 93005; 93970; 94640; 99291; C1725; J0456; J0696; J1650; J1885; J2405; J2920; J2930; J3475; J3490; J7060; C9803-CS; U0003-CS

== ENCOUNTER 2023-07-15 01:55 | Emergency (ER) | payer MEDICARE, OTHER ==
[~2023-07-15] VITALS: Ht 165.1 cm; Wt 69.0 kg
[~2023-07-15 01:55] MED LIST changes: -ALBU6.7H INH; -IPRA4AER INH; +P20 MT; +P50 PO; +PRED10TA MT
[2023-07-15 01:59] VITALS: TEMP 98.6; O2SAT 100
[2023-07-15 02:00] VITALS: RESP 23
[2023-07-15] MEDS ORDERED: IPRATROPIUM BROMIDE (0.02%) 0.5MG/2.5ML NEB HHN STA (02:06)
[2023-07-15] MEDS ORDERED: METHYLPREDNISOLONE SOD SUCC 125MG/2ML (ACT-O-VIAL) IV STA (02:06)
[2023-07-15] MEDS ORDERED: MAGNESIUM 2 G PREMIX 50 ML IV ONE (02:15)
[2023-07-15] MEDS: ALBUTEROL (0.083%) 2.5MG/3ML NEB HHN SCH ×3 (02:29→02:37)
[2023-07-15 02:48] LABS: HEMOGLOBIN. 10.5 g/dL (12.0-16.0); LYMPHOCYTES % 7.7 % (20.0-50.0); MEAN CORPUSCULAR HEMOGLOBIN 26.2 pg (28.0-32.0); MEAN CORPUSCULAR HGB CONC 32.7 g/dL (31.0-37.0); MEAN CORPUSCULAR VOLUME 80.1 fL (81.0-99.0); MEAN PLATELET VOLUME 7.4 fl (7.4-10.4); MONOCYTES % 4.6 % (2.0-8.0); NEUTROPHILS % 87.7 % (40.0-76.0); PLATELET 347 x1000/uL (130-400); RED CELL DISTRIBUTION WIDTH 16.2 % (11.6-14.6); WHITE BLOOD COUNT 15.3 x1000/uL (4.5-11.0)
[2023-07-15 03:17] LABS: CHLORIDE 107 mEq/L (98-107); INDEX HEMOLYSI 1 (1-3); INDEX ICTERIC 1 (1-4); INDEX LIPEMIC 1 (1-3); POTASSIUM 4.8 mEq/L (3.5-5.1); SODIUM 141 mEq/L (136-145)
[2023-07-15 03:51] LABS: ALANINE AMINOTRANSFERASE 29 IU/L (13-61); ALBUMIN 3.8 g/dL (3.4-5.0); ASPARTATE AMINOTRANSFERASE 25 IU/L (15-37); BILIRUBIN TOTAL 0.4 mg/dL (0.1-1.0); CALCIUM 9.7 mg/dL (8.5-10.1); CREATININE 2.7 mg/dL (0.6-1.3); GLUCOSE 118 mg/dL (70-105); NT PRO B-TYPE NATRIURETIC PEP 309 pg/mL (5-125); PROTEIN TOTAL 8.7 g/dL (6.0-8.3); TROPONIN I HIGH SENSITIVITY 29 ng/L (<54); UREA NITROGEN BLOOD 28 mg/dL (7-21)
[2023-07-15 03:56] LABS: BG BASE EXCESS -1.9 mmol/L (-2.0-2.0); BG CARBOXYHEMOGLOBIN 0.3 % (0.5-1.5); BG DEOXYHEMOGLOBIN 0.7 % (0.0-5.0); BG FRACTION INSPIRED OXYGEN 50; BG HCO3 ACT 23.9 mmol/L (22.0-26.0); BG METHEMOGLOBIN 0.5 % (0.0-1.5); BG OXYGEN SATURATION 99.3 % (92.0-98.5); BG OXYHEMOGLOBIN 98.5 % (94.0-97.0); BG PCO2 45.5 mmHg (35.0-45.0); BG PH 7.339 (7.350-7.450); BG PO2 241.7 mmHg (75.0-100.0); BG SAMPLE SITE RIGHT BRACHIAL; BG TOTAL HEMOGLOBIN 10.4 g/dL (12.0-18.0); BG TOTAL RESPIRATORY RATE 17 b/min; BG VENT MODE MASK - BIPAP
[2023-07-15 05:04] LABS: LACTIC ACID 3.9 mmol/L (0.4-2.0)
[2023-07-15 05:13] LABS: TROPONIN I HIGH SENSITIVITY 25 ng/L (<54)
[2023-07-15 06:58] VITALS: BP 124/71; PULSE 85; RESP 16
[2023-07-15] MEDS ORDERED: IOHEXOL-350 100 ML BOTTLE ONE (07:22)
[2023-07-15 11:45] LABS: CARBON DIOXIDE 25 mEq/L (21-32)
== END 2023-07-15 06:59 | disposition short-term general hospital (02) ==
LOC: ER 02:10
DX: J44.1 Chronic obstructive pulmonary disease with (acute) exacerbation (principal); E78.00 Pure hypercholesterolemia, unspecified; Z88.6 Allergy status to analgesic agent
CPT/HCPCS: 99291; 96365; 71275; 71045; 96375; 80053; 83880; 83605; 85025; 85379; 84484; 36415; 94640; 82805; 82375; 36600; Q9967; J3475; J2930; 94660